=== PATIENT | male | born 1960 | race Hispanic/Latino ===

== ENCOUNTER 2021-01-01 18:27 | Emergency (ER) | payer BC, OTHER ==
[~2021-01-01] VITALS: Ht 170.2 cm; Wt 87.1 kg
[~2021-01-01 18:27] MED LIST: ALBU8.5H8 IH; ASPI-1114 PO; CETI10TA57 PO; LISI20TA24 PO; METO-391 PO; RANI-655 PO
[2021-01-01] MEDS ORDERED: FAMOTIDINE 20MG VIAL IV ONE ×2 (18:40→18:45)
[2021-01-01 18:42] VITALS: BP 152/77
[2021-01-01] MEDS ORDERED: DIPH25 PO (20:54)
[2021-01-01] MEDS ORDERED: PRED20TA3 PO (20:54)
[2021-01-01] MEDS ORDERED: FAMO-136 PO (20:54)
[2021-01-01] MEDS ORDERED: EPIN0.3P3 IJ (20:54)
[2021-01-01 21:13] VITALS: BP 125/75
== END 2021-01-01 21:13 | disposition home or self-care (01) ==
LOC: EDH 18:44
DX: T63.441A Toxic effect of venom of bees, accidental (unintentional), initial encounter (principal); R00.2 Palpitations; I10 Essential (primary) hypertension; E78.00 Pure hypercholesterolemia, unspecified; Z79.899 Other long term (current) drug therapy; Y92.89 Other specified places as the place of occurrence of the external cause
CPT/HCPCS: 96374; 99283; J3490

== ENCOUNTER 2022-06-17 14:50 | Observation (INO) | payer OTHER ==
[~2022-06-17] VITALS: Ht 170.2 cm; Wt 93.8 kg
[~2022-06-17 14:50] MED LIST changes: +DIPH25 PO; +EPIN0.3P3 IJ; +FAMO-136 PO; +PRED20TA3 PO
[2022-06-17 16:18] LABS: BASOPHILS % (AUTO) 0.3 % (0.0-5.0); EOSINOPHILS % (AUTO) 1.7 % (0.0-8.0); HEMATOCRIT 43.1 % (42-54); LYMPHOCYTES % (AUTO) 10.4 % (21.0-51.0); MEAN CORPUSCULAR HEMOGLOBIN 33.2 pg (27.0-33.0); MEAN CORPUSCULAR HGB CONC 35.3 g/dL (32.0-36.0); MEAN CORPUSCULAR VOLUME 94.1 fL (79-99); MONOCYTES % (AUTO) 9.8 % (3.0-13.0); NEUTROPHILS % (AUTO) 77.4 % (40.0-77.0); PLATELET COUNT (AUTO) 237 K/uL (130-400); RED BLOOD CELL COUNT(AUTO) 4.58 MIL/uL (4.50-6.20); RED CELL DISTRIBUTION WIDTH 11.8 % (11.0-15.5); WHITE BLOOD COUNT (AUTO) 9.8 K/uL (4.8-10.8)
[2022-06-17] MEDS ORDERED: ONDANSETRON 4MG INJ IVP ONE (16:30)
[2022-06-17] MEDS ORDERED: ZOSYN 3.375GM +NS 50ML IV ONE (16:30)
[2022-06-17] MEDS ORDERED: 0.9% NACL 500ML IV.SOLN 500 ML IV ONE (16:30)
[2022-06-17] MEDS ORDERED: VANCOMYCIN KIT 1 GM/250 ML IV.KIT IV ONE (16:30)
[2022-06-17] MEDS ORDERED: MORPHINE 4 MG SYG IVP ONE (16:30)
[2022-06-17 16:39] LABS: POTASSIUM 3.5 mmol/L (3.5-5.1)
[2022-06-17 16:43] LABS: ALBUMIN 3.7 g/dL (3.5-5.0); TOTAL PROTEIN, SERUM 7.6 g/dL (6.0-8.3)
[2022-06-17] MEDS ORDERED: ONDANSETRON 4MG INJ ONE (17:02)
[2022-06-17] MEDS ORDERED: ZOSYN 3.375GM+NS 50ML 50 ML ONE (17:02)
[2022-06-17] MEDS ORDERED: MORPHINE 4 MG SYG ONE (17:03)
[2022-06-17] MEDS ORDERED: TRAMADOL HCL 50 MG TABLET PO PRN (18:00)
[2022-06-17] MEDS ORDERED: ONDANSETRON 4MG INJ IVP PRN (18:00)
[2022-06-17] MEDS ORDERED: CLONIDINE HCL 0.1 MG TABLET PO PRN (18:00)
[2022-06-17] MEDS ORDERED: LACTULOSE 20 GM/30 ML UDCUP PO PRN (18:00)
[2022-06-17] MEDS ORDERED: ACETAMINOPHEN 325 MG TAB PO PRN (18:00)
[2022-06-17] MEDS ORDERED: LABETALOL 20MG SYG IV PRN (18:00)
[2022-06-17] MEDS ORDERED: DOCUSATE SODIUM 100 MG CAP PO PRN (18:00)
[2022-06-17] MEDS ORDERED: TEMAZEPAM 15 MG CAPSULE PO PRN (18:00)
[2022-06-17] MEDS ORDERED: VANCOMYCIN PROTOCOL PER PHARMACY IV SCH (18:00)
[2022-06-17] MEDS ORDERED: HYDRALAZINE 20MG/ML VIAL IV PRN (18:00)
[2022-06-17] MEDS ORDERED: ACETAMINOPHEN 650 MG SUPPOSITORY RC PRN (18:00)
[2022-06-17] MEDS ORDERED: COMPOUND IV REFRIGERATED 1 EACH IVSOLN MISC PRN (18:30)
[2022-06-17] MEDS: LACTATED RINGERS 1000ML 1,000 ML IV SCH (19:01)
[2022-06-17] MEDS ORDERED: VANCOMYCIN 1.25GM/NS 250ML IVPB SCH ×2 (21:00)
[2022-06-18] VITALS (26 sets, daily range): BP systolic 113–175; BP diastolic 53–89
[2022-06-18] MEDS: ZOSYN 3.375GM +NS 50ML IV SCH ×3 (01:04→16:40)
[2022-06-18] MEDS ORDERED: CYCL-309 PO (01:23)
[2022-06-18] MEDS ORDERED: METO50TA18 PO (01:23)
[2022-06-18] MEDS ORDERED: SIMV40TA59 PO (01:23)
[2022-06-18] MEDS ORDERED: METO-391 PO (01:23)
[2022-06-18] MEDS ORDERED: CLIN-141 PO (01:23)
[2022-06-18] MEDS ORDERED: NAPR-1023 PO (01:23)
[2022-06-18] MEDS ORDERED: GLUCAGON 1MG KIT 1 MG ML IM PRN (04:30)
[2022-06-18] MEDS ORDERED: MAGNESIUM 2GM PREMIX 50ML 50 ML IV PRN (04:30)
[2022-06-18] MEDS ORDERED: DEXTROSE 50%-WATER 50 ML DISP.SYRIN IV PRN (04:30)
[2022-06-18] MEDS ORDERED: KCL 20 MEQ ERTAB PO PRN (04:30)
[2022-06-18] MEDS ORDERED: POTASSIUM CHLORIDE 10% ELIXIR 20 MEQ/15 ML UDCUP PO PRN (04:30)
[2022-06-18] MEDS ORDERED: LIDOCAINE HCL-MPF 1% 2ML VIAL IV PRN (04:30)
[2022-06-18] MEDS ORDERED: POTASSIUM CHLORIDE 20MEQ/100ML 100 ML IV PRN (04:30)
[2022-06-18 05:44] LABS: BASOPHILS % (AUTO) 0.2 % (0.0-5.0); EOSINOPHILS % (AUTO) 3.2 % (0.0-8.0); HEMATOCRIT 39.5 % (42-54); LYMPHOCYTES % (AUTO) 17.6 % (21.0-51.0); MEAN CORPUSCULAR HEMOGLOBIN 33.7 pg (27.0-33.0); MEAN CORPUSCULAR HGB CONC 34.2 g/dL (32.0-36.0); MEAN CORPUSCULAR VOLUME 98.5 fL (79-99); MONOCYTES % (AUTO) 11.3 % (3.0-13.0); NEUTROPHILS % (AUTO) 67.4 % (40.0-77.0); PLATELET COUNT (AUTO) 208 K/uL (130-400); RED BLOOD CELL COUNT(AUTO) 4.01 MIL/uL (4.50-6.20); RED CELL DISTRIBUTION WIDTH 11.8 % (11.0-15.5); WHITE BLOOD COUNT (AUTO) 8.9 K/uL (4.8-10.8)
[2022-06-18 05:57] LABS: CREATININE 0.9 mg/dL (0.5-1.5); MAGNESIUM 1.9 mg/dL (1.80-2.40); PHOSPHORUS 3.2 mg/dL (2.5-4.9); POTASSIUM 4.2 mmol/L (3.5-5.1)
[2022-06-18] MEDS: HYDROMORPHONE 0.5 MG SYG (0.5MG/0.5ML) IVP PRN ×3 (06:23→16:41)
[2022-06-18] MEDS: LACTATED RINGERS 1000ML 1,000 ML IV SCH (06:23)
[2022-06-18] MEDS: INSULIN HUMULIN R 100 UNIT/ML 3ML SQ SCH ×3 (07:30→16:30)
[2022-06-18] MEDS: PANTOPRAZOLE 40 MG/VIAL IVP SCH ×2 (08:33→19:54)
[2022-06-18] MEDS: LISINOPRIL 20 MG TABLET PO SCH (08:33)
[2022-06-18] MEDS: VANCOMYCIN 1G 1.25 GM in 0.9% NACL 250ML 250 ML IVPB SCH ×2 (11:11→20:10)
[2022-06-18] MEDS ORDERED: CEFAZOLIN SODIUM 1 GM VIAL ONE (12:15)
[2022-06-18] MEDS ORDERED: PROPOFOL 10 MG/ML 20ML VIAL IV ONE (13:35)
[2022-06-18] MEDS ORDERED: FENTANYL CITRATE PF 50 MCG/1 ML 2ML VIAL ONE (13:37)
[2022-06-18] MEDS ORDERED: CEFAZOLIN SODIUM 1 GM VIAL IVPB ONE (14:13)
[2022-06-18] MEDS ORDERED: VANCOMYCIN 500MG+NS 100ML 100 ML IV ONE (19:59)
[2022-06-18] MEDS ORDERED: VANCOMYCIN 1G/250ML KIT 250 ML IV ONE (19:59)
[2022-06-19] VITALS: BP 129/67
[2022-06-19] MEDS: ZOSYN 3.375GM +NS 50ML IV SCH ×2 (01:21→08:58)
[2022-06-19] MEDS ORDERED: ALBUTEROL INHALER 90MCG/INH IH ONE (03:57)
[2022-06-19 04:00] VITALS: BP 130/83
[2022-06-19] MEDS ORDERED: ALBUTEROL INHALER 90MCG/INH IH PRN (04:00)
[2022-06-19 04:57] LABS: HEMATOCRIT 42.4 % (42-54); MEAN CORPUSCULAR HEMOGLOBIN 33.1 pg (27.0-33.0); MEAN CORPUSCULAR VOLUME 97.5 fL (79-99); RED BLOOD CELL COUNT(AUTO) 4.35 MIL/uL (4.50-6.20); RED CELL DISTRIBUTION WIDTH 11.6 % (11.0-15.5); WHITE BLOOD COUNT (AUTO) 8.3 K/uL (4.8-10.8)
[2022-06-19 05:09] LABS: POTASSIUM 3.6 mmol/L (3.5-5.1)
[2022-06-19 07:20] VITALS: BP 127/74
[2022-06-19] MEDS: PANTOPRAZOLE 40 MG/VIAL IVP SCH (08:58)
[2022-06-19] MEDS: VANCOMYCIN 1G 1.25 GM in 0.9% NACL 250ML 250 ML IVPB SCH (08:59)
[2022-06-19] MEDS: LISINOPRIL 20 MG TABLET PO SCH (08:59)
[2022-06-19 11:25] VITALS: BP 141/85
[2022-06-19] MEDS ORDERED: SULF1TAB42 PO (14:50)
== END 2022-06-19 16:03 | disposition home or self-care (01) ==
LOC: EDH 14:50 → EDHIP 17:30 → 4DH 06-18 00:35
PROVIDERS: ADMIT Internal Medicine; ATTEND Internal Medicine
DX: L03.011 Cellulitis of right finger (principal); Z20.822 Contact with and (suspected) exposure to COVID-19; I10 Essential (primary) hypertension; J45.909 Unspecified asthma, uncomplicated; E11.65 Type 2 diabetes mellitus with hyperglycemia; E78.5 Hyperlipidemia, unspecified; E78.00 Pure hypercholesterolemia, unspecified; Z87.891 Personal history of nicotine dependence; Z98.61 Coronary angioplasty status; Z79.82 Long term (current) use of aspirin; Z79.899 Other long term (current) drug therapy; Z98.890 Other specified postprocedural states
CPT/HCPCS: 96365; 96366 ×5; 96375 ×2; 96368; 99284; 80053; 85025 ×2; 87040 ×2; 83605; 82010; 36415 ×3; 73140; 11042; 96376 ×2; 96367; 83735; 84100; 80048 ×2; 86850; 86900; 86901; 87070; 87076; 87077 ×2; 87186 ×2; 82948; 87635; 93005; 80202; 85027; G0378 ×44; J7040; J7120 ×2; J2405; J2270; J2543 ×6; J3370 ×4; J3475; J3010; J0690 ×2; J2704; C9113 ×3; J7050; J1170 ×3; A4930; A4223; A4222

== ENCOUNTER → 2022-07-21 | Outpatient (CLI) | payer OTHER ==
[~2022-07-21] MED LIST changes: -ALBU8.5H8 IH; -ASPI-1114 PO; -CETI10TA57 PO; +CYCL-309 PO; -DIPH25 PO; -EPIN0.3P3 IJ; -FAMO-136 PO; +NAPR-1023 PO; -PRED20TA3 PO; -RANI-655 PO; +SIMV40TA59 PO; +SULF1TAB42 PO
== END | disposition home or self-care (01) ==
LOC: WHH 13:24
PROVIDERS: ATTEND Family Medicine
DX: S61.200A Unspecified open wound of right index finger without damage to nail, initial encounter (principal); I10 Essential (primary) hypertension; E78.5 Hyperlipidemia, unspecified; E78.00 Pure hypercholesterolemia, unspecified; K70.0 Alcoholic fatty liver; J45.909 Unspecified asthma, uncomplicated; E66.9 Obesity, unspecified; F10.10 Alcohol abuse, uncomplicated; Z87.891 Personal history of nicotine dependence; Z79.899 Other long term (current) drug therapy; Z68.32 Body mass index [BMI] 32.0-32.9, adult; Z98.890 Other specified postprocedural states; X58.XXXA Exposure to other specified factors, initial encounter; Y93.89 Activity, other specified; Y92.89 Other specified places as the place of occurrence of the external cause; Y99.8 Other external cause status
CPT/HCPCS: 11042; 87070; A4450

== ENCOUNTER → 2022-07-28 | Outpatient (CLI) | payer OTHER ==
[~2022-07-28] MED LIST changes: +LIDOCAINE HCL 4% LTA SOL 4 ML VIAL TP ONE
== END | disposition home or self-care (01) ==
LOC: WHH 09:42
PROVIDERS: ATTEND Family Medicine
DX: S61.200D Unspecified open wound of right index finger without damage to nail, subsequent encounter (principal); I10 Essential (primary) hypertension; E78.5 Hyperlipidemia, unspecified; E78.00 Pure hypercholesterolemia, unspecified; K70.0 Alcoholic fatty liver; J45.909 Unspecified asthma, uncomplicated; E66.9 Obesity, unspecified; F10.10 Alcohol abuse, uncomplicated; Z87.891 Personal history of nicotine dependence; Z79.899 Other long term (current) drug therapy; Z68.32 Body mass index [BMI] 32.0-32.9, adult; Z98.890 Other specified postprocedural states; X58.XXXD Exposure to other specified factors, subsequent encounter
CPT/HCPCS: 11042

== ENCOUNTER → 2022-08-04 | Outpatient (CLI) | payer OTHER | END | disposition home or self-care (01) | LOC: WHH 09:25 | PROVIDERS: ATTEND Family Medicine | DX: S61.200D Unspecified open wound of right index finger without damage to nail, subsequent encounter (principal); L98.491 Non-pressure chronic ulcer of skin of other sites limited to breakdown of skin; I10 Essential (primary) hypertension; E78.5 Hyperlipidemia, unspecified; E78.00 Pure hypercholesterolemia, unspecified; K70.0 Alcoholic fatty liver; J45.909 Unspecified asthma, uncomplicated; E66.9 Obesity, unspecified; F10.10 Alcohol abuse, uncomplicated; Z87.891 Personal history of nicotine dependence; Z79.899 Other long term (current) drug therapy; Z68.32 Body mass index [BMI] 32.0-32.9, adult; Z98.890 Other specified postprocedural states; X58.XXXD Exposure to other specified factors, subsequent encounter | CPT/HCPCS: 11042 ==

== ENCOUNTER → 2022-08-11 | Outpatient (CLI) | payer OTHER | END | disposition home or self-care (01) | LOC: WHH 08:55 | PROVIDERS: ATTEND Family Medicine | DX: S61.200D Unspecified open wound of right index finger without damage to nail, subsequent encounter (principal); L98.491 Non-pressure chronic ulcer of skin of other sites limited to breakdown of skin; I10 Essential (primary) hypertension; E78.5 Hyperlipidemia, unspecified; E78.00 Pure hypercholesterolemia, unspecified; K70.0 Alcoholic fatty liver; J45.909 Unspecified asthma, uncomplicated; E66.9 Obesity, unspecified; F10.10 Alcohol abuse, uncomplicated; Z87.891 Personal history of nicotine dependence; Z79.899 Other long term (current) drug therapy; Z68.32 Body mass index [BMI] 32.0-32.9, adult; Z98.890 Other specified postprocedural states; X58.XXXD Exposure to other specified factors, subsequent encounter | CPT/HCPCS: 11042; A4450 ==

== ENCOUNTER → 2022-08-18 | Outpatient (CLI) | payer OTHER | END | disposition home or self-care (01) | LOC: WHH 08:54 | PROVIDERS: ATTEND Family Medicine | DX: S61.200D Unspecified open wound of right index finger without damage to nail, subsequent encounter (principal); L98.492 Non-pressure chronic ulcer of skin of other sites with fat layer exposed; I10 Essential (primary) hypertension; E78.5 Hyperlipidemia, unspecified; E78.00 Pure hypercholesterolemia, unspecified; K70.0 Alcoholic fatty liver; J45.909 Unspecified asthma, uncomplicated; E66.9 Obesity, unspecified; F10.10 Alcohol abuse, uncomplicated; Z87.891 Personal history of nicotine dependence; Z79.899 Other long term (current) drug therapy; Z68.32 Body mass index [BMI] 32.0-32.9, adult; Z98.890 Other specified postprocedural states; X58.XXXD Exposure to other specified factors, subsequent encounter | CPT/HCPCS: 11042 ==

== ENCOUNTER → 2022-09-01 | Outpatient (CLI) | payer OTHER | END | disposition home or self-care (01) | LOC: WHH 08:44 | PROVIDERS: ATTEND Family Medicine | DX: S61.200D Unspecified open wound of right index finger without damage to nail, subsequent encounter (principal); L98.492 Non-pressure chronic ulcer of skin of other sites with fat layer exposed; I10 Essential (primary) hypertension; E78.5 Hyperlipidemia, unspecified; E78.00 Pure hypercholesterolemia, unspecified; K70.0 Alcoholic fatty liver; J45.909 Unspecified asthma, uncomplicated; E66.9 Obesity, unspecified; F10.10 Alcohol abuse, uncomplicated; Z87.891 Personal history of nicotine dependence; Z79.899 Other long term (current) drug therapy; Z68.32 Body mass index [BMI] 32.0-32.9, adult; Z98.890 Other specified postprocedural states; X58.XXXD Exposure to other specified factors, subsequent encounter | CPT/HCPCS: 15275; Q4121 ×2; A6197; A6207 ==

== ENCOUNTER → 2022-09-08 | Outpatient (CLI) | payer OTHER ==
[~2022-09-08] MED LIST changes: -LIDOCAINE HCL 4% LTA SOL 4 ML VIAL TP ONE
== END | disposition home or self-care (01) ==
LOC: WHH 08:16
PROVIDERS: ATTEND Family Medicine
DX: S61.200D Unspecified open wound of right index finger without damage to nail, subsequent encounter (principal); L98.492 Non-pressure chronic ulcer of skin of other sites with fat layer exposed; I10 Essential (primary) hypertension; E78.5 Hyperlipidemia, unspecified; E78.00 Pure hypercholesterolemia, unspecified; K70.0 Alcoholic fatty liver; J45.909 Unspecified asthma, uncomplicated; E66.9 Obesity, unspecified; F10.10 Alcohol abuse, uncomplicated; Z87.891 Personal history of nicotine dependence; Z79.899 Other long term (current) drug therapy; Z68.32 Body mass index [BMI] 32.0-32.9, adult; Z98.890 Other specified postprocedural states; X58.XXXD Exposure to other specified factors, subsequent encounter
CPT/HCPCS: 15275; Q4121 ×2; A6196; A4450; A6207

== ENCOUNTER → 2022-09-15 | Outpatient (CLI) | payer OTHER ==
[~2022-09-15] MED LIST changes: +LIDOCAINE HCL 4% LTA SOL 4 ML VIAL TP ONE
== END | disposition home or self-care (01) ==
LOC: WHH 08:12
PROVIDERS: ATTEND Family Medicine
DX: S61.200D Unspecified open wound of right index finger without damage to nail, subsequent encounter (principal); L98.492 Non-pressure chronic ulcer of skin of other sites with fat layer exposed; I10 Essential (primary) hypertension; E78.5 Hyperlipidemia, unspecified; E78.00 Pure hypercholesterolemia, unspecified; K70.0 Alcoholic fatty liver; J45.909 Unspecified asthma, uncomplicated; E66.9 Obesity, unspecified; F10.10 Alcohol abuse, uncomplicated; Z87.891 Personal history of nicotine dependence; Z79.899 Other long term (current) drug therapy; Z68.32 Body mass index [BMI] 32.0-32.9, adult; Z98.890 Other specified postprocedural states; X58.XXXD Exposure to other specified factors, subsequent encounter
CPT/HCPCS: 15275; Q4121 ×2; A6197; A6207

== ENCOUNTER → 2022-09-22 | Outpatient (CLI) | payer OTHER | END | disposition home or self-care (01) | LOC: WHH 08:17 | PROVIDERS: ATTEND Family Medicine | DX: S61.200D Unspecified open wound of right index finger without damage to nail, subsequent encounter (principal); L98.492 Non-pressure chronic ulcer of skin of other sites with fat layer exposed; I10 Essential (primary) hypertension; E78.5 Hyperlipidemia, unspecified; E78.00 Pure hypercholesterolemia, unspecified; K70.0 Alcoholic fatty liver; J45.909 Unspecified asthma, uncomplicated; E66.9 Obesity, unspecified; F10.10 Alcohol abuse, uncomplicated; Z79.899 Other long term (current) drug therapy; Z68.32 Body mass index [BMI] 32.0-32.9, adult; Z87.891 Personal history of nicotine dependence; Z98.890 Other specified postprocedural states; X58.XXXD Exposure to other specified factors, subsequent encounter | CPT/HCPCS: 15275; Q4121 ×2; A6196; A6207 ==

== ENCOUNTER → 2022-09-29 | Outpatient (CLI) | payer OTHER ==
[~2022-09-29] MED LIST changes: -LIDOCAINE HCL 4% LTA SOL 4 ML VIAL TP ONE
== END | disposition home or self-care (01) ==
LOC: WHH 08:13
PROVIDERS: ATTEND Family Medicine
DX: S61.200D Unspecified open wound of right index finger without damage to nail, subsequent encounter (principal); L98.492 Non-pressure chronic ulcer of skin of other sites with fat layer exposed; I10 Essential (primary) hypertension; E78.5 Hyperlipidemia, unspecified; E78.00 Pure hypercholesterolemia, unspecified; K70.0 Alcoholic fatty liver; J45.909 Unspecified asthma, uncomplicated; E66.9 Obesity, unspecified; F10.10 Alcohol abuse, uncomplicated; Z79.899 Other long term (current) drug therapy; Z68.32 Body mass index [BMI] 32.0-32.9, adult; Z87.891 Personal history of nicotine dependence; Z98.890 Other specified postprocedural states; X58.XXXD Exposure to other specified factors, subsequent encounter
CPT/HCPCS: 15275; Q4121 ×2; A6197; A6207

== ENCOUNTER → 2022-10-06 | Outpatient (CLI) | payer OTHER ==
[~2022-10-06] MED LIST changes: +LIDOCAINE HCL 4% LTA SOL 4 ML VIAL TP ONE
== END | disposition home or self-care (01) ==
LOC: WHH 08:28
PROVIDERS: ATTEND Family Medicine
DX: S61.200D Unspecified open wound of right index finger without damage to nail, subsequent encounter (principal); L98.492 Non-pressure chronic ulcer of skin of other sites with fat layer exposed; I10 Essential (primary) hypertension; E78.5 Hyperlipidemia, unspecified; E78.00 Pure hypercholesterolemia, unspecified; K70.0 Alcoholic fatty liver; J45.909 Unspecified asthma, uncomplicated; E66.9 Obesity, unspecified; F10.10 Alcohol abuse, uncomplicated; Z79.899 Other long term (current) drug therapy; Z68.32 Body mass index [BMI] 32.0-32.9, adult; Z87.891 Personal history of nicotine dependence; Z98.890 Other specified postprocedural states; X58.XXXD Exposure to other specified factors, subsequent encounter
CPT/HCPCS: G0463; A4450

== ENCOUNTER → 2022-10-13 | Outpatient (CLI) | payer OTHER | END | disposition home or self-care (01) | LOC: WHH 08:22 | PROVIDERS: ATTEND Family Medicine | DX: S61.200D Unspecified open wound of right index finger without damage to nail, subsequent encounter (principal); L98.492 Non-pressure chronic ulcer of skin of other sites with fat layer exposed; I10 Essential (primary) hypertension; E78.5 Hyperlipidemia, unspecified; E78.00 Pure hypercholesterolemia, unspecified; K70.0 Alcoholic fatty liver; J45.909 Unspecified asthma, uncomplicated; E66.9 Obesity, unspecified; F10.10 Alcohol abuse, uncomplicated; Z79.899 Other long term (current) drug therapy; Z68.32 Body mass index [BMI] 32.0-32.9, adult; Z87.891 Personal history of nicotine dependence; Z98.890 Other specified postprocedural states; X58.XXXD Exposure to other specified factors, subsequent encounter | CPT/HCPCS: 15275; Q4121 ×2; A6196 ==

== ENCOUNTER → 2022-10-20 | Outpatient (CLI) | payer OTHER | END | disposition home or self-care (01) | LOC: WHH 07:58 | PROVIDERS: ATTEND Nurse Practitioner Family | DX: S61.200D Unspecified open wound of right index finger without damage to nail, subsequent encounter (principal); L98.492 Non-pressure chronic ulcer of skin of other sites with fat layer exposed; I10 Essential (primary) hypertension; E78.5 Hyperlipidemia, unspecified; E78.00 Pure hypercholesterolemia, unspecified; K70.0 Alcoholic fatty liver; J45.909 Unspecified asthma, uncomplicated; E66.9 Obesity, unspecified; F10.10 Alcohol abuse, uncomplicated; Z79.899 Other long term (current) drug therapy; Z68.32 Body mass index [BMI] 32.0-32.9, adult; Z87.891 Personal history of nicotine dependence; Z98.890 Other specified postprocedural states; X58.XXXD Exposure to other specified factors, subsequent encounter | CPT/HCPCS: 15275; Q4121 ×2; A6196 ==

== ENCOUNTER → 2022-10-27 | Outpatient (CLI) | payer OTHER ==
[~2022-10-27] MED LIST changes: -LIDOCAINE HCL 4% LTA SOL 4 ML VIAL TP ONE
== END | disposition home or self-care (01) ==
LOC: WHH 08:19
PROVIDERS: ATTEND Nurse Practitioner Family
DX: S61.200D Unspecified open wound of right index finger without damage to nail, subsequent encounter (principal); L98.492 Non-pressure chronic ulcer of skin of other sites with fat layer exposed; I10 Essential (primary) hypertension; E78.5 Hyperlipidemia, unspecified; E78.00 Pure hypercholesterolemia, unspecified; K70.0 Alcoholic fatty liver; J45.909 Unspecified asthma, uncomplicated; E66.9 Obesity, unspecified; F10.10 Alcohol abuse, uncomplicated; Z79.899 Other long term (current) drug therapy; Z68.32 Body mass index [BMI] 32.0-32.9, adult; Z87.891 Personal history of nicotine dependence; Z98.890 Other specified postprocedural states; X58.XXXD Exposure to other specified factors, subsequent encounter
CPT/HCPCS: 15275; Q4121 ×2; A6197; A6207

== ENCOUNTER → 2022-11-03 | Outpatient (CLI) | payer OTHER ==
[~2022-11-03] MED LIST changes: +LIDOCAINE HCL 4% LTA SOL 4 ML VIAL TP ONE
== END | disposition home or self-care (01) ==
LOC: WHH 08:17
PROVIDERS: ATTEND Nurse Practitioner Family
DX: S61.200D Unspecified open wound of right index finger without damage to nail, subsequent encounter (principal); L98.492 Non-pressure chronic ulcer of skin of other sites with fat layer exposed; I10 Essential (primary) hypertension; E78.5 Hyperlipidemia, unspecified; E78.00 Pure hypercholesterolemia, unspecified; K70.0 Alcoholic fatty liver; J45.909 Unspecified asthma, uncomplicated; E66.9 Obesity, unspecified; F10.10 Alcohol abuse, uncomplicated; Z79.899 Other long term (current) drug therapy; Z68.32 Body mass index [BMI] 32.0-32.9, adult; Z87.891 Personal history of nicotine dependence; Z98.890 Other specified postprocedural states; X58.XXXD Exposure to other specified factors, subsequent encounter
CPT/HCPCS: 15275; Q4121 ×2; A6196; A4450

== ENCOUNTER → 2022-11-10 | Outpatient (CLI) | payer OTHER | END | disposition home or self-care (01) | LOC: WHH 07:57 | PROVIDERS: ATTEND Nurse Practitioner Family | DX: S61.200D Unspecified open wound of right index finger without damage to nail, subsequent encounter (principal); L98.492 Non-pressure chronic ulcer of skin of other sites with fat layer exposed; I10 Essential (primary) hypertension; E78.5 Hyperlipidemia, unspecified; E78.00 Pure hypercholesterolemia, unspecified; K70.0 Alcoholic fatty liver; J45.909 Unspecified asthma, uncomplicated; E66.9 Obesity, unspecified; F10.10 Alcohol abuse, uncomplicated; Z79.899 Other long term (current) drug therapy; Z68.32 Body mass index [BMI] 32.0-32.9, adult; Z87.891 Personal history of nicotine dependence; Z98.890 Other specified postprocedural states; X58.XXXD Exposure to other specified factors, subsequent encounter | CPT/HCPCS: 15275; Q4121 ×2; A6196 ==

== ENCOUNTER → 2022-11-17 | Outpatient (CLI) | payer OTHER ==
[~2022-11-17] MED LIST changes: -LIDOCAINE HCL 4% LTA SOL 4 ML VIAL TP ONE
== END | disposition home or self-care (01) ==
LOC: WHH 08:16
PROVIDERS: ATTEND Nurse Practitioner Family
DX: S61.200D Unspecified open wound of right index finger without damage to nail, subsequent encounter (principal); L98.492 Non-pressure chronic ulcer of skin of other sites with fat layer exposed; I10 Essential (primary) hypertension; E78.5 Hyperlipidemia, unspecified; E78.00 Pure hypercholesterolemia, unspecified; K70.0 Alcoholic fatty liver; J45.909 Unspecified asthma, uncomplicated; E66.9 Obesity, unspecified; F10.10 Alcohol abuse, uncomplicated; Z79.899 Other long term (current) drug therapy; Z68.32 Body mass index [BMI] 32.0-32.9, adult; Z87.891 Personal history of nicotine dependence; Z98.890 Other specified postprocedural states; X58.XXXD Exposure to other specified factors, subsequent encounter
CPT/HCPCS: 99214; A6196

== ENCOUNTER → 2022-11-24 | Outpatient (CLI) | payer OTHER | END | disposition home or self-care (01) | LOC: WHH 08:13 | PROVIDERS: ATTEND Nurse Practitioner Family | DX: S61.200D Unspecified open wound of right index finger without damage to nail, subsequent encounter (principal); L98.492 Non-pressure chronic ulcer of skin of other sites with fat layer exposed; I10 Essential (primary) hypertension; E78.5 Hyperlipidemia, unspecified; E78.00 Pure hypercholesterolemia, unspecified; K70.0 Alcoholic fatty liver; J45.909 Unspecified asthma, uncomplicated; E66.9 Obesity, unspecified; F10.10 Alcohol abuse, uncomplicated; Z79.899 Other long term (current) drug therapy; Z68.32 Body mass index [BMI] 32.0-32.9, adult; Z87.891 Personal history of nicotine dependence; Z98.890 Other specified postprocedural states; X58.XXXD Exposure to other specified factors, subsequent encounter | CPT/HCPCS: 11042; A6022 ==

== ENCOUNTER → 2022-12-08 | Outpatient (CLI) | payer OTHER ==
[~2022-12-08] MED LIST changes: +LIDOCAINE HCL 4% LTA SOL 4 ML VIAL TP ONE
== END ==
LOC: WHH 08:22
PROVIDERS: ATTEND Nurse Practitioner Family
DX: S61.200D Unspecified open wound of right index finger without damage to nail, subsequent encounter (principal); E66.9 Obesity, unspecified; L98.492 Non-pressure chronic ulcer of skin of other sites with fat layer exposed; I10 Essential (primary) hypertension; E78.00 Pure hypercholesterolemia, unspecified; K70.0 Alcoholic fatty liver; J45.909 Unspecified asthma, uncomplicated; F10.10 Alcohol abuse, uncomplicated; Z79.899 Other long term (current) drug therapy; Z68.32 Body mass index [BMI] 32.0-32.9, adult; Z87.891 Personal history of nicotine dependence; Z98.890 Other specified postprocedural states; X58.XXXD Exposure to other specified factors, subsequent encounter
CPT/HCPCS: 11042; A6021; A4450

== ENCOUNTER → 2022-12-15 | Outpatient (CLI) | payer OTHER ==
[~2022-12-15] MED LIST changes: -LIDOCAINE HCL 4% LTA SOL 4 ML VIAL TP ONE
== END | disposition home or self-care (01) ==
LOC: WHH 08:14
PROVIDERS: ATTEND Nurse Practitioner Family
DX: S61.200D Unspecified open wound of right index finger without damage to nail, subsequent encounter (principal); E66.9 Obesity, unspecified; L98.492 Non-pressure chronic ulcer of skin of other sites with fat layer exposed; I10 Essential (primary) hypertension; E78.5 Hyperlipidemia, unspecified; E78.00 Pure hypercholesterolemia, unspecified; K70.0 Alcoholic fatty liver; J45.909 Unspecified asthma, uncomplicated; F10.10 Alcohol abuse, uncomplicated; Z79.899 Other long term (current) drug therapy; Z68.32 Body mass index [BMI] 32.0-32.9, adult; Z87.891 Personal history of nicotine dependence; Z98.890 Other specified postprocedural states; X58.XXXD Exposure to other specified factors, subsequent encounter
CPT/HCPCS: 99214; A6021; G0463

== ENCOUNTER → 2022-12-22 | Outpatient (CLI) | payer OTHER ==
[~2022-12-22] MED LIST changes: +LIDOCAINE HCL 4% LTA SOL 4 ML VIAL TP ONE
== END | disposition home or self-care (01) ==
LOC: WHH 08:20
PROVIDERS: ATTEND Nurse Practitioner Family
DX: S61.200D Unspecified open wound of right index finger without damage to nail, subsequent encounter (principal); L98.492 Non-pressure chronic ulcer of skin of other sites with fat layer exposed; I10 Essential (primary) hypertension; E78.00 Pure hypercholesterolemia, unspecified; K70.0 Alcoholic fatty liver; J45.909 Unspecified asthma, uncomplicated; E66.9 Obesity, unspecified; Z68.32 Body mass index [BMI] 32.0-32.9, adult; Z79.899 Other long term (current) drug therapy; Z87.891 Personal history of nicotine dependence; Z98.890 Other specified postprocedural states; X58.XXXD Exposure to other specified factors, subsequent encounter
CPT/HCPCS: 99214; A6248

== ENCOUNTER → 2023-01-05 | Outpatient (CLI) | payer OTHER | END | disposition home or self-care (01) | LOC: WHH 08:17 | PROVIDERS: ATTEND Nurse Practitioner Family | DX: S61.200D Unspecified open wound of right index finger without damage to nail, subsequent encounter (principal); L98.492 Non-pressure chronic ulcer of skin of other sites with fat layer exposed; E78.5 Hyperlipidemia, unspecified; I10 Essential (primary) hypertension; E78.00 Pure hypercholesterolemia, unspecified; J45.909 Unspecified asthma, uncomplicated; E66.9 Obesity, unspecified; F10.10 Alcohol abuse, uncomplicated; Z68.32 Body mass index [BMI] 32.0-32.9, adult; Z87.891 Personal history of nicotine dependence; Z79.899 Other long term (current) drug therapy; X58.XXXD Exposure to other specified factors, subsequent encounter | CPT/HCPCS: 99214; A6021; A4450 ==

== ENCOUNTER → 2023-01-12 | Outpatient (CLI) | payer OTHER | END | disposition home or self-care (01) | LOC: WHH 08:09 | PROVIDERS: ATTEND Nurse Practitioner Family | DX: S61.200D Unspecified open wound of right index finger without damage to nail, subsequent encounter (principal); L98.492 Non-pressure chronic ulcer of skin of other sites with fat layer exposed; I10 Essential (primary) hypertension; E78.00 Pure hypercholesterolemia, unspecified; J45.909 Unspecified asthma, uncomplicated; E66.9 Obesity, unspecified; F10.10 Alcohol abuse, uncomplicated; Z68.32 Body mass index [BMI] 32.0-32.9, adult; Z87.891 Personal history of nicotine dependence; Z79.899 Other long term (current) drug therapy; X58.XXXD Exposure to other specified factors, subsequent encounter | CPT/HCPCS: 11042; A6021 ==

== ENCOUNTER → 2023-01-26 | Outpatient (CLI) | payer OTHER | END | disposition home or self-care (01) | LOC: WHH 08:19 | PROVIDERS: ATTEND Nurse Practitioner Family | DX: S61.200D Unspecified open wound of right index finger without damage to nail, subsequent encounter (principal); L98.491 Non-pressure chronic ulcer of skin of other sites limited to breakdown of skin; I10 Essential (primary) hypertension; J45.909 Unspecified asthma, uncomplicated; E78.00 Pure hypercholesterolemia, unspecified; E66.9 Obesity, unspecified; F10.10 Alcohol abuse, uncomplicated; Z68.32 Body mass index [BMI] 32.0-32.9, adult; Z87.891 Personal history of nicotine dependence; Z79.899 Other long term (current) drug therapy; X58.XXXD Exposure to other specified factors, subsequent encounter | CPT/HCPCS: 11042; A6021 ==

== ENCOUNTER → 2023-02-02 | Outpatient (CLI) | payer OTHER ==
[~2023-02-02] MED LIST changes: -LIDOCAINE HCL 4% LTA SOL 4 ML VIAL TP ONE
== END | disposition home or self-care (01) ==
LOC: WHH 08:06
PROVIDERS: ATTEND Nurse Practitioner Family
DX: S61.200D Unspecified open wound of right index finger without damage to nail, subsequent encounter (principal); L98.492 Non-pressure chronic ulcer of skin of other sites with fat layer exposed; I10 Essential (primary) hypertension; J45.909 Unspecified asthma, uncomplicated; E78.00 Pure hypercholesterolemia, unspecified; E66.9 Obesity, unspecified; F10.10 Alcohol abuse, uncomplicated; Z68.32 Body mass index [BMI] 32.0-32.9, adult; Z87.891 Personal history of nicotine dependence; Z79.899 Other long term (current) drug therapy; X58.XXXD Exposure to other specified factors, subsequent encounter
CPT/HCPCS: 11042; A6021

== ENCOUNTER → 2023-02-09 | Outpatient (CLI) | payer OTHER ==
[~2023-02-09] MED LIST changes: +LIDOCAINE HCL 4% LTA SOL 4 ML VIAL TP ONE
== END | disposition home or self-care (01) ==
LOC: WHH 10:53
PROVIDERS: ATTEND Nurse Practitioner Family
DX: S61.200D Unspecified open wound of right index finger without damage to nail, subsequent encounter (principal); L98.492 Non-pressure chronic ulcer of skin of other sites with fat layer exposed; I10 Essential (primary) hypertension; E78.00 Pure hypercholesterolemia, unspecified; E66.9 Obesity, unspecified; F10.10 Alcohol abuse, uncomplicated; Z68.32 Body mass index [BMI] 32.0-32.9, adult; Z87.891 Personal history of nicotine dependence; Z79.899 Other long term (current) drug therapy; X58.XXXD Exposure to other specified factors, subsequent encounter
CPT/HCPCS: 99214; A4649; A4450

== ENCOUNTER → 2023-02-16 | Outpatient (CLI) | payer OTHER | END | disposition home or self-care (01) | LOC: WHH 09:02 | PROVIDERS: ATTEND Nurse Practitioner Family | DX: S61.200D Unspecified open wound of right index finger without damage to nail, subsequent encounter (principal); I10 Essential (primary) hypertension; E78.00 Pure hypercholesterolemia, unspecified; E66.9 Obesity, unspecified; F10.10 Alcohol abuse, uncomplicated; Z68.32 Body mass index [BMI] 32.0-32.9, adult; Z87.891 Personal history of nicotine dependence; Z79.899 Other long term (current) drug therapy; X58.XXXD Exposure to other specified factors, subsequent encounter | CPT/HCPCS: 11042; A6022 ==

== ENCOUNTER → 2023-02-23 | Outpatient (CLI) | payer OTHER | END | disposition home or self-care (01) | LOC: WHH 08:19 | PROVIDERS: ATTEND Nurse Practitioner Family | DX: S61.200D Unspecified open wound of right index finger without damage to nail, subsequent encounter (principal); I10 Essential (primary) hypertension; E78.00 Pure hypercholesterolemia, unspecified; J45.909 Unspecified asthma, uncomplicated; E66.9 Obesity, unspecified; F10.10 Alcohol abuse, uncomplicated; Z68.32 Body mass index [BMI] 32.0-32.9, adult; Z87.891 Personal history of nicotine dependence; Z79.899 Other long term (current) drug therapy; X58.XXXD Exposure to other specified factors, subsequent encounter | CPT/HCPCS: 99214 ==

== ENCOUNTER → 2023-03-02 | Outpatient (CLI) | payer OTHER | END | disposition home or self-care (01) | LOC: WHH 08:21 | PROVIDERS: ATTEND Nurse Practitioner Family | DX: S61.200D Unspecified open wound of right index finger without damage to nail, subsequent encounter (principal); I10 Essential (primary) hypertension; E78.00 Pure hypercholesterolemia, unspecified; J45.909 Unspecified asthma, uncomplicated; E66.9 Obesity, unspecified; F10.10 Alcohol abuse, uncomplicated; Z68.32 Body mass index [BMI] 32.0-32.9, adult; Z87.891 Personal history of nicotine dependence; Z79.899 Other long term (current) drug therapy; X58.XXXD Exposure to other specified factors, subsequent encounter | CPT/HCPCS: 99214 ==

== ENCOUNTER → 2023-03-16 | Outpatient (CLI) | payer OTHER ==
[~2023-03-16] MED LIST changes: -LIDOCAINE HCL 4% LTA SOL 4 ML VIAL TP ONE
== END | disposition home or self-care (01) ==
LOC: WHH 08:23
PROVIDERS: ATTEND Nurse Practitioner Family
DX: L03.011 Cellulitis of right finger (principal); I10 Essential (primary) hypertension; E78.00 Pure hypercholesterolemia, unspecified; J45.909 Unspecified asthma, uncomplicated; E66.9 Obesity, unspecified; F10.10 Alcohol abuse, uncomplicated; Z68.32 Body mass index [BMI] 32.0-32.9, adult; Z87.891 Personal history of nicotine dependence; Z79.899 Other long term (current) drug therapy
CPT/HCPCS: 73140; 99214

== ENCOUNTER → 2023-03-23 | Outpatient (CLI) | payer OTHER | END | disposition home or self-care (01) | LOC: WHH 08:04 | PROVIDERS: ATTEND Nurse Practitioner Family | DX: L03.011 Cellulitis of right finger (principal); I10 Essential (primary) hypertension; E78.00 Pure hypercholesterolemia, unspecified; J45.909 Unspecified asthma, uncomplicated; E66.9 Obesity, unspecified; F10.10 Alcohol abuse, uncomplicated; Z68.32 Body mass index [BMI] 32.0-32.9, adult; Z87.891 Personal history of nicotine dependence; Z79.899 Other long term (current) drug therapy | CPT/HCPCS: 99214 ==

== ENCOUNTER → 2023-03-26 | Outpatient (CLI) | payer OTHER | END | disposition home or self-care (01) | LOC: RAH 14:42 | PROVIDERS: ATTEND Nurse Practitioner Family | DX: R60.9 Edema, unspecified (principal); L03.011 Cellulitis of right finger | CPT/HCPCS: 73218 ==

== ENCOUNTER 2024-08-23 09:35 | Emergency (ER) | payer OTHER ==
[~2024-08-23] VITALS: Ht 170.2 cm; Wt 86.2 kg
[~2024-08-23 09:35] MED LIST changes: -CYCL-309 PO; +FLUT15.845 NS; -NAPR-1023 PO; -SULF1TAB42 PO
[2024-08-23 09:39] VITALS: TEMP 97.9
[2024-08-23 10:01] LABS: BASOPHILS # (AUTO) 0.02 K/uL (0.00-0.20); BASOPHILS % (AUTO) 0.5 % (0.0-5.0); EOSINOPHILS # (AUTO) 0.17 K/uL (0.00-0.70); EOSINOPHILS % (AUTO) 4.7 % (0.0-8.0); HEMATOCRIT 40.4 % (42-54); IMMATURE GRANULOCYTE ABSOLUTE 0.01 K/uL (0-1); LYMPHOCYTES # (AUTO) 1.5 K/uL (1.0-4.8); LYMPHOCYTES % (AUTO) 41.6 % (21.0-51.0); MEAN CORPUSCULAR HEMOGLOBIN 31.6 pg (27.0-33.0); MEAN CORPUSCULAR HGB CONC 34.9 g/dL (32.0-36.0); MEAN CORPUSCULAR VOLUME 90.6 fL (79-99); MONOCYTES # (AUTO) 0.2 K/uL (0.1-1.0); MONOCYTES % (AUTO) 5.5 % (3.0-13.0); NEUTROPHILS # (AUTO) 1.7 K/uL (1.8-7.7); NEUTROPHILS % (AUTO) 47.4 % (40.0-77.0); PLATELET COUNT (AUTO) 242 K/uL (130-400); RED BLOOD CELL COUNT(AUTO) 4.46 MIL/uL (4.50-6.20); WHITE BLOOD COUNT (AUTO) 3.7 K/uL (4.8-10.8)
--- NOTE | 2024-08-23 10:03 | NUR ---
ASSUMED PT CARE AT THIS TIME. PT JUST PLACED IN MY ED BED 10
--- NOTE | 2024-08-23 10:08 | EKG ---
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
[2024-08-23 10:10] LABS: CREATININE 0.8 mg/dL (0.5-1.3)
[2024-08-23 10:16] LABS: B-TYPE NATRIURETIC PEPTIDE 17 pg/mL (0-100)
--- NOTE | 2024-08-23 10:50 | ERN ---
ED Note History of Present Illness Stated Complaint: CP Chief Complaint: Chest Pain Time Seen by MD: 09:37 Dictation: 63-year-old male presents to the ED via EMS for evaluation of chest pain onset two days ago. Patient reports pain radiates to his left shoulder and is also complaining SOB, but denies any other associated symptoms at this time. EMS administered 324 mg of aspirin and 1 nitro tab [employer]PAREL DES[employer]. Patient mentioned he has not followed up with Cardiology in last couple of years. Allergies: Coded Allergies: No Known Allergies (Verified Allergy, Unknown, 08/25/16) Home Meds Reported Medications Fluticasone Propionate (Fluticasone Propionate) 50 Mcg/Actuation [place].susp, 15.8 ML NS DAILY 04/01/23 Lisinopril (Lisinopril) 20 Mg Tablet, 20 MG PO HS, TAB 04/01/23 Metoprolol Succinate (Metoprolol Succinate) 50 Mg Tab.er.24h, 50 MG PO DAILY, TAB 06/18/22 Simvastatin (ZOCOR) 40 Mg Tablet, 40 MG PO HS, TAB 06/18/22 Past Medical History Past Medical History: Asthma, High Cholesterol, Hypertension Surgical History: Other Surgical History Other: R INDEX FINGER AMPUTATION. Review of System Dictation Constitutional: Negative for fever,chills, and weight loss Eyes: Negative for injury, pain,redness, and discharge ENT: Negative for injury,pain or swelling Cardiovascular: Positive for chest pain negative for palpitations, and edema Respiratory: Positive for shortness of breath negative for, cough, and wheezing, Abdomen/GI: Negative for abdominal pain, nausea, vomiting, diarrhea, and constipation Back: Negative for injury and pain : Negative for injury, bleeding and discharge MS/Extremity: Positive for left shoulder pain Negative for injury and deformity Skin: Negative for rash, and discoloration Neuro: Negative for headache, weakness, numbness, tingling, and seizure Psych: Negative for suicide ideation, homicidal ideation, and hallucinations Initial Vital Sign VS Vital Signs Date Time Temp Pulse Resp B/P (MAP) Pulse Ox O2 Delivery O2 Flow Rate FiO2 08/23/24 09:39 97.9 75 16 122/66 100 Room Air 0 08/23/24 09:39 21 Physical Exam Dictation General: awake, alert, NAD Head/Face: Normocephalic, atraumatic Eyes: PERRL, EOMI, vision at baseline ENT: oral cavity clear, TMs clear, no signs of infection Neck: Trachea midline, supple, no nuchal rigidity Cardiovascular: RRR, normal S1/S2, No MRGs, no JVD Respiratory: CTAB, no respiratory distress, No rales or wheezes Abdomen: Soft, non-tender, non-distended, normal bowel sounds, no guarding or rebound. Skin: Warm, dry, normal turgor, no rash MS/Extremity: Pulses equal, no cyanosis, neurovascular intact, FROM Neuro: COAx4, GCS 15, strength 5/5, CN 2-12 intact, normal cerebellar exam, normal gait, Psych: Normal behavior, mood, and affect normal Results (Laboratory/Radiology) Laboratory/Radiology Laboratory Tests Test 08/23/24 09:50 08/23/24 10:16 08/23/24 11:11 08/23/24 11:55 White Blood Count 3.7 K/uL (4.8-10.8) L Red Blood Count 4.46 MIL/uL (4.50-6.20) L Hemoglobin 14.1 g/dL (14.0-18.0) Hematocrit 40.4 % (42-54) L Mean Corpuscular Volume 90.6 fL (79-99) Mean Corpuscular Hemoglobin 31.6 pg (27.0-33.0) Mean Corpuscular Hemoglobin Concent 34.9 g/dL (32.0-36.0) Red Cell Distribution Width 12.0 % (11.0-15.5) Platelet Count 242 K/uL (130-400) Mean Platelet Volume 8.8 fL (7.5-10.5) Immature Granulocyte % (Auto) 0.3 % (0-1) Neutrophils (%) (Auto) 47.4 % (40.0-77.0) Lymphocytes (%) (Auto) 41.6 % (21.0-51.0) Monocytes (%) (Auto) 5.5 % (3.0-13.0) Eosinophils (%) (Auto) 4.7 % (0.0-8.0) Basophils (%) (Auto) 0.5 % (0.0-5.0) Neutrophils # (Auto) 1.7 K/uL (1.8-7.7) L Lymphocytes # (Auto) 1.5 K/uL (1.0-4.8) Monocytes # (Auto) 0.2 K/uL (0.1-1.0) Eosinophils # (Auto) 0.17 K/uL (0.00-0.70) Basophils # (Auto) 0.02 K/uL (0.00-0.20) Absolute Immature Granulocyte (auto 0.01 K/uL (0-1) Nucleated Red Blood Cells 0.0 % (0.0-0.19) Sodium Level 136 mmol/L (136-145) Potassium Level 4.0 mmol/L (3.5-5.1) Chloride Level 100 mmol/L (101-111) L Carbon Dioxide Level 26 mmol/L (21-32) Blood Urea Nitrogen 10 mg/dL (7-18) Creatinine 0.8 mg/dL (0.5-1.3) Glomerular Filtration Rate Calc 100 mL/min (>90) Random Glucose 73 mg/dL (70-105) Total Calcium 8.8 mg/dL (8.5-10.1) Total Creatine Kinase 404 U/L (21-232) #*H Troponin I High Sensitivity 48 ng/L (4-75) 48 ng/L (4-75) B-Type Natriuretic Peptide 17 pg/mL (0-100) Troponin I < 0.05 ng/mL (0.00-0.05) Urine Color COLORLESS (YELLOW) Urine Appearance CLEAR (CLEAR) Urine pH 5.5 (5.0-8.0) Urine Specific [place] 1.006 (1.001-1.031) Urine Protein NEGATIVE mg/dL (NEGATIVE) Urine Glucose (UA) NEGATIVE mg/dL (NEGATIVE) Urine Ketones 20 mg/dL (NEGATIVE) H Urine Occult Blood NEGATIVE (NEGATIVE) Urine Nitrate NEGATIVE (NEGATIVE) Urine Bilirubin NEGATIVE mg/dL (NEGATIVE) Urine Urobilinogen 0.2 mg/dL (0.2-1.0) Urine Leukocyte Esterase NEGATIVE [place]/uL Urine RBC 0-1 /HPF (0-1) Urine WBC 0-1 /HPF (0-1) Urine Bacteria None /HPF (None Seen) Labs Reviewed?: Yes EKG Comment: EKG 08/23/2024 time 9:24 a.m. ventricular rate 77, VT 162, QRS D 84, QT 439. Sinus rhythm. No STEMI ED Course ED Course Orders Procedure Category Date Status Time Vital Signs Per CPOE 08/23/24 Transmitted Routine 09:36 B-Type Natriuretic LAB 08/23/24 Complete Peptide 09:36 Chest 1vw RAD 08/23/24 Resulted 09:36 12 Lead Ekg Tracing- EKG 08/23/24 Complete Technical 09:36 Oxygen By Nc/Pulse Ox CPOE 08/23/24 Transmitted 09:36 Maintain Iv CPOE 08/23/24 Transmitted 09:36 Iv Insertion CPOE 08/23/24 Transmitted 09:36 Cardiac Monitoring CPOE 08/23/24 Transmitted 09:36 Pulse Oximetry With CPOE 08/23/24 Transmitted Vs And Prn 09:36 Cbc With Differential LAB 08/23/24 Complete 09:36 Activity: Br W/Brp CPOE 08/23/24 Transmitted With Assist 09:36 Creatine Kinase, Total LAB 08/23/24 Complete 09:36 Troponin I High LAB 08/23/24 Complete Sensitivity 09:36 Urinalysis Profile LAB 08/23/24 Complete 09:36 Troponin Poc Order LAB 08/23/24 Complete Only 09:36 Bedside Troponin-I LAB.ER 08/23/24 In Process (Poc) 09:36 Basic Metabolic Panel LAB 08/23/24 Complete 09:36 Mag/Alum/Simeth 30ml PHA 08/23/24 Complete (Maalox Plus 30ml) 12:00 Troponin I High LAB 08/23/24 Complete Sensitivity 11:37 Current Medications Medications (Trade) Dose Ordered Sig/Candy Route PRN Reason Start Time Stop Time Status Last Admin Dose Admin Al Hydroxide/Mg Hydroxide (MAALox PLUS 30ML) 30 ml ONCE ONCE PO 08/23/24 12:00 08/23/24 12:01 DC 08/23/24 12:29 Vital Signs Date Time Temp Pulse Resp B/P (MAP) Pulse Ox O2 Delivery O2 Flow Rate FiO2 08/23/24 09:39 97.9 75 16 122/66 100 Room Air* 0 21 08/23/24 09:39 97.9 75 16 122/66 100 Room Air 0 HEART Score Response (Comments) Value History: Low suspicion (0) 0 EKG: Normal 0 Age: 45-65yrs (+1) 1 Risk Factors: 1-2 risk factors (+1) 1 Initial Troponin: Normal limit (0) 0 HEART Score Risk: Low Risk for MACE (1-3) Total 2 Medical Decision Making MDM MDM: Differential diagnosis: Chest pain, angina Rationale: Tests considered and ordered secondary to shared decision making include: labs, ECG and radiology Risk of complication and/or morbidity or mortality of patient management: None Medications-Per medication reconciliation Need for hospitalization: Patient does meet criteria for hospitalization. Need for emergency major/minor surgery: No There are no social concerns with this patient. Prescription drug management Prescriptions will include symptomatic care I independently interpreted the test that were performed, results were reviewed by me and considered findings on radiology if ordered. DX & DISP Disposition: Discharge Departure Impression: Primary Impression: Chest pain Condition: Stable Referrals: SALVADOR WOODSON MD (PCP) REGINA ASH MD Aug 23, 2024 10:50
--- NOTE | 2024-08-23 11:00 | HMCIMG ---
CHEST 1VW REASON: CHEST PAIN COMPARISON: 08/25/2016 FINDINGS: Single view of the chest was obtained. Lungs are clear. Heart size is normal. There is no pulmonary vascular congestion. Mediastinum and bony thorax appear unremarkable. IMPRESSION: 1. Normal single view chest x-ray.
[2024-08-23 11:35] LABS: APPEARANCE,URINE CLEAR (CLEAR); BILIRUBIN,URINE NEGATIVE (NEGATIVE); COLOR,URINE COLORLESS (YELLOW); GLUCOSE, URINE (UA) NEGATIVE (NEGATIVE); KETONES,URINE 20 mg/dL (NEGATIVE); LEUKOCYTE ESTERASE ,URINE NEGATIVE Leu/uL (NEGATIVE); NITRATE,URINE NEGATIVE (NEGATIVE); OCCULT BLOOD,URINE NEGATIVE (NEGATIVE); PH,URINE 5.5 (5.0-8.0); PROTEIN,URINE NEGATIVE (NEGATIVE); UROBILINOGEN,URINE 0.2 mg/dL (0.2-1.0)
[2024-08-23 11:41] LABS: ADD UA MICROSCOPIC YES
[2024-08-23 11:44] LABS: MUCUS,URINE RARE LPF (None Seen); RBC,URINE 0-1 /HPF (0-1); WBC,URINE 0-1 /HPF (0-1)
[2024-08-23] MEDS: MAG/ALUM/SIMETH 30 ML UDCUP PO ONE (12:29)
[2024-08-23 15:00] VITALS: BP 126/76; PULSE 89; RESP 14; O2SAT 95
== END 2024-08-23 15:36 | disposition home or self-care (01) ==
LOC: EDH 09:35
DX: R07.89 Other chest pain (principal); E78.00 Pure hypercholesterolemia, unspecified; I10 Essential (primary) hypertension; J45.909 Unspecified asthma, uncomplicated; Z79.899 Other long term (current) drug therapy
CPT/HCPCS: 36415; 71045; 80048; 81001; 82550; 83880; 84484; 85025; 93005; 99285